=== PATIENT | male | born 1985 | race Caucasian/White ===

== ENCOUNTER → 2021-06-04 | Outpatient (CLI) | payer OTHER ==
--- NOTE | 2021-06-04 14:05 | Diagnostic Imaging Report ---
PROCEDURE: CT abdomen and pelvis without contrast. TECHNIQUE: Multiple contiguous axial images were obtained through the abdomen and pelvis without the use of intravenous contrast. Auto Exposure Controls were utilized during the CT exam to meet ALARA standards for radiation dose reduction. INDICATION: Right flank pain for one month. Patient had right nephrectomy 2 years ago. Correlation is made with prior CT from 05/15/2015. Imaging through lung bases does show some minimal infiltrate or atelectasis in the right lower lobe. The liver and gallbladder are unremarkable. There is no biliary duct dilatation. Pancreas and spleen are unremarkable. A right kidney is surgically absent. Left kidney is without calculi or hydronephrosis. Adrenal glands are unremarkable. Aorta is nonaneurysmal. Bowel loops are nonobstructed. There is no free fluid or fluid collection. The bladder and prostate are unremarkable. Bony structures are nonacute. IMPRESSION: 1. Minimal right basilar infiltrate or atelectasis. 2. Status post right nephrectomy. No acute feature is identified. Dictated by: Dictated on workstation # [id number]
== END ==
LOC: RAD 12:45
PROVIDERS: ATTEND Urology
DX: R10.9 Unspecified abdominal pain (principal); Z90.5 Acquired absence of kidney
CPT/HCPCS: 74176